=== PATIENT | male | born 1990 | race Hispanic/Latino ===

== ENCOUNTER 2024-05-23 11:02 | Emergency (ER) | payer BC ==
[~2024-05-23] VITALS: Ht 180.3 cm; Wt 102.1 kg
[2024-05-23] MEDS: PANTOPRAZOLE 40 MG/VIAL IVP ONE (11:31)
[2024-05-23] MEDS: ONDANSETRON 4MG INJ IVP ONE (11:31)
[2024-05-23] MEDS: 0.9%NACL 1000ML 1,000 ML IV ONE (11:31)
[2024-05-23 12:12] LABS: CREATININE 0.9 mg/dL (0.5-1.3); INR 1.1 (0.85-1.15); POTASSIUM 3.9 mmol/L (3.5-5.1); PROTHROMBIN TIME 11.8 SEC (9.6-11.6)
[2024-05-23 12:13] LABS: PARTIAL THROMBOPLASTIN TIME 26.5 SEC (26.3-35.5)
[2024-05-23 12:17] LABS: ALBUMIN 4.7 g/dL (3.5-5.0); BILIRUBIN,TOTAL 1.3 mg/dL (0.2-1.0); TOTAL PROTEIN, SERUM 9.3 g/dL (6.0-8.3)
[2024-05-23 12:21] LABS: APPEARANCE,URINE CLOUDY (CLEAR); BILIRUBIN,URINE 0.5 mg/dL (NEGATIVE); COLOR,URINE YELLOW (YELLOW); GLUCOSE, URINE (UA) NEGATIVE (NEGATIVE); KETONES,URINE 100 mg/dL (NEGATIVE); LEUKOCYTE ESTERASE ,URINE NEGATIVE Leu/uL (NEGATIVE); NITRATE,URINE NEGATIVE (NEGATIVE); OCCULT BLOOD,URINE SMALL (NEGATIVE); PROTEIN,URINE 300 mg/dL (NEGATIVE); UROBILINOGEN,URINE 3 mg/dL (0.2-1.0)
[2024-05-23 12:28] LABS: AMPHET/METH SCREEN,URINE NEGATIVE (NEGATIVE); BARBITURATE SCREEN, URINE NEGATIVE (NEGATIVE); BENZODIAZEPINES SCREEN,URINE NEGATIVE (NEGATIVE); CANNABINOID SCREEN,URINE POSITIVE (NEGATIVE); COCAINE SCREEN,URINE NEGATIVE (NEGATIVE); OPIATE SCREEN,URINE NEGATIVE (NEGATIVE); PHENCYCLIDINE SCREEN,URINE NEGATIVE (NEGATIVE)
[2024-05-23] MEDS ORDERED: MORPHINE 2 MG SYG IVP ONE (12:30)
[2024-05-23] MEDS ORDERED: ONDANSETRON 4MG INJ IVP ONE (12:30)
[2024-05-23 12:32] LABS: ADD UA MICROSCOPIC YES
[2024-05-23 12:34] LABS: BACTERIA,URINE FEW /HPF (None Seen); MUCUS,URINE MANY LPF (None Seen); SQUAMOUS EPITHELIAL CELL,UR RARE /HPF (0-2)
[2024-05-23] MEDS ORDERED: IOHEXOL-350 75 ML VIAL IV ONE (13:06)
[2024-05-23] MEDS: MORPHINE 2 MG SYG IVP ONE (15:14)
[2024-05-23] MEDS ORDERED: OMEP40CA21 PO (15:23)
[2024-05-23] MEDS ORDERED: CHLO25CA6 PO (15:23)
[2024-05-23] MEDS: LORazepam 2 MG/ML 1 ML VIAL IVP ONE (15:32)
[2024-05-23 15:58] VITALS: BP 150/98; PULSE 93; RESP 20; O2SAT 97
== END 2024-05-23 16:14 | disposition home or self-care (01) ==
LOC: EDH 11:02
DX: F10.129 Alcohol abuse with intoxication, unspecified (principal); K76.0 Fatty (change of) liver, not elsewhere classified; F12.10 Cannabis abuse, uncomplicated; R79.89 Other specified abnormal findings of blood chemistry; R04.2 Hemoptysis; Z90.89 Acquired absence of other organs; Y90.6 Blood alcohol level of 120-199 mg/100 ml
CPT/HCPCS: 99284; 74177; 96374; 96375; 71045; 80053; 80305; 83690; 85610; 85730; 36415; 81001; J2270; J2405; J2060; J2470; Q9967

== ENCOUNTER 2024-08-08 08:19 | Emergency (ER) | payer BC ==
[~2024-08-08] VITALS: Ht 180.3 cm; Wt 94.3 kg
[~2024-08-08 08:19] MED LIST: CHLO25CA6 PO; OMEP40CA21 PO
[2024-08-08 08:20] VITALS: TEMP 98.7
--- NOTE | 2024-08-08 08:26 | ERN ---
General Chief Complaint: Mechanical Fall Stated Complaint: FALL, ETOH ABUSE Time Seen by MD: 08:22 History of Present Illness Initial Comments 34-year-old male brought in by EMS from home for being found down. According to the patient, he drank very heavily over the last couple of days. According to family, they found him on the ground shaking earlier today. The patient does not remember the event. He is currently GCS 15, he does feel shaky. Tachycardic 120s per EMS. Otherwise vital signs stable. He reports he has w ithdrawn before in the past. He does not drink every day. Allergies: Coded Allergies: No Known Drug Allergies (Unverified Allergy, Unknown, 05/23/24) Home Meds Active Scripts Chlordiazepoxide HCl (Librium 25 mg Cap) 25 Mg Cap, 50 MG PO TID for 5 Days, #30 CAP TWO CAPSULES BY MOUTH EVERY 8 HOURS FOR THE NEXT FIVE DAYS. Prov:GEREMIAS MILTON NP 05/23/24 Omeprazole (Omeprazole) 40 Mg Capsule.dr, 40 MG PO DAILY, #30 CAP Prov:GEREMIAS MILTON NP 05/23/24 Past Medical History Past Medical History: Anxiety, Other Medical History Other: FATTY LIVER Past Surgical History: None Social History Social History: Drugs, ETOH ROS Dictation CONSTITUTIONAL: Shakiness and anxiety HEAD/FACE: No signs of trauma. EENT: No eye pain, no blurred vision, no tearing, no double vision, no ear pain, no ear discharge, no nose pain, no nasal congestion, no throat pain, no throat swelling, no mouth pain. RESPIRATORY: No cough, no orthopnea, no SOB, no stridor, no wheezing. CARDIOVASCULAR: No chest pain, no edema, no palpitations, no syncope. GASTROINTESTINAL/ABDOMINAL: No abdominal pain, no constipation, no diarrhea, no nausea, no vomiting. GENITOURINARY: No abnormal discharge, no dysuria, no frequent urination, no hematuria. No complaints of pain in the genitals. MUSCULOSKELETAL: No back pain, no gout, no joint pain, no joint swelling, no muscle pain, no muscle stiffness, no neck pain. INTEGUMENTARY: No change in color, no change in hair/nails, no dryness, no lesion, no lumps, no rash. NEUROLOGICAL/PSYCH: No anxiety, not depressed, no emotional problem, no headache, no numbness, no pre-existing deficit, no history of seizures, no tremors, no weakness. HEMATOLOGIC/LYMPHATIC: Not anemic, no history of blood clots, no apparent bleeding, no bruising, glands not swollen. All Systems Negative, Except as Noted. Physical Exam Physical Exam Dictation VITAL SIGNS: Reviewed. GENERAL APPEARANCE: Alert, oriented x3, shaky, obese. HEAD AND FACE: Non-traumatic. EYES: PERRL, pink conjunctivas, eyelid no trauma, anterior chamber clear. EARS: Pinnas intact and no signs of trauma or erythema. Ear canals clear and no discharge. TMs no erythema. NOSE: No discharge, no bleeding. OROPHARYNX: Mouth normal, teeth no caries, tongue pink. Pharynx clear, no erythema. Tonsils no exudates, no abscesses noted. Mucous membrane moist. NECK: Supple, non-tender, no thyromegaly, no masses, no JVD, no bruits. BREAST: Deferred. CHEST: No tenderness, no crepitus, no paradoxical movement, no retractions. LUNGS: Clear, well-ventilated, symmetric, no rales, no wheezing, no rhonchi, no stridor, good breath sounds bilaterally. HEART: Regular rate, regular rhythm, no murmur, no gallops. VASCULAR: No peripheral edema. ABDOMEN: Soft, positive bowel sounds, nondistended, no guarding, nontender, no rebound, no masses no hepatomegaly, no splenomegaly, no Almaraz's sign, no hernias. RECTAL: Deferred. GENITAL: Deferred. NEUROLOGICAL: Normal speech, gross motor function intact, gross sensory function intact. MUSCULOSKELETAL: Neck nontender, full range of motion, back nontender, full range of motion. EXTREMITIES: Nontender, full range of motion. SKIN: Color pink, dry, no turgor, no rash, no lacerations, no abrasions, no contusions. LYMPHATICS: Deferred. Results Laboratory and Microbiology Lab and Micro Result Laboratory Tests Test 08/08/24 09:51 White Blood Count 16.6 K/uL (4.8-10.8) H Red Blood Count 4.80 MIL/uL (4.50-6.20) Hemoglobin 14.9 g/dL (14.0-18.0) Hematocrit 43.9 % (42-54) Mean Corpuscular Volume 91.5 fL (79-99) Mean Corpuscular Hemoglobin 31.0 pg (27.0-33.0) Mean Corpuscular Hemoglobin Concent 33.9 g/dL (32.0-36.0) Red Cell Distribution Width 12.7 % (11.0-15.5) Platelet Count 344 K/uL (130-400) Mean Platelet Volume 9.5 fL (7.5-10.5) Immature Granulocyte % (Auto) 0.4 % (0-1) Neutrophils (%) (Auto) 85.2 % (40.0-77.0) H Lymphocytes (%) (Auto) 9.3 % (21.0-51.0) L Monocytes (%) (Auto) 4.1 % (3.0-13.0) Eosinophils (%) (Auto) 0.1 % (0.0-8.0) Basophils (%) (Auto) 0.9 % (0.0-5.0) Neutrophils # (Auto) 14.2 K/uL (1.8-7.7) H Lymphocytes # (Auto) 1.5 K/uL (1.0-4.8) Monocytes # (Auto) 0.7 K/uL (0.1-1.0) Eosinophils # (Auto) 0.02 K/uL (0.00-0.70) Basophils # (Auto) 0.15 K/uL (0.00-0.20) Absolute Immature Granulocyte (auto 0.07 K/uL (0-1) Nucleated Red Blood Cells 0.0 % (0.0-0.19) White Cell Morphology Comment See comments Sodium Level 135 mmol/L (136-145) L Potassium Level 3.8 mmol/L (3.5-5.1) Chloride Level 91 mmol/L (101-111) L Carbon Dioxide Level 17 mmol/L (21-32) L Blood Urea Nitrogen 17 mg/dL (7-18) Creatinine 1.3 mg/dL (0.5-1.3) Glomerular Filtration Rate Calc 73 mL/min (>90) Random Glucose 120 mg/dL (70-105) H Total Calcium 8.6 mg/dL (8.5-10.1) Total Bilirubin 1.3 mg/dL (0.2-1.0) H Direct Bilirubin 0.5 mg/dL (0.0-0.3) H Aspartate Amino Transf (AST/SGOT) 55 U/L (10-37) H Alanine Aminotransferase (ALT/SGPT) 70 U/L (12-78) Alkaline Phosphatase 160 U/L (50-136) H Ammonia 47 umol/L (11-32) H Total Creatine Kinase 614 U/L (21-232) *H Total Protein 8.8 g/dL (6.0-8.3) H Albumin 4.8 g/dL (3.5-5.0) Lipase 45 U/L (16-77) MDM CC: Altered mentation, recent alcohol use Historian: EMS and patient Comorbidities: Alcohol abuse Limitations by social determinants of health: None Vital signs: Tachycardia heart rate 125 otherwise unremarkable Labs show leukocytosis 16.6 1000 with a left shift. No bands. Chemistry does show mildly elevated CK, does not meet criteria for rhabdo. He is also mildly acidotic consistent with dehydration. Electrolytes are otherwise stable. CT of the brain without contrast shows no obvious bleed per my independent interpretation. Patient received 2 L normal saline and Reglan IV here in the ER. Symptoms are consistent with alcohol withdrawal. low suspicion for any life threats. He is not in delirium tremens at this time. Has a low CIWA score. We will DC. REASON: aloc ORDERING PHYSICIAN: DAVID ANNA DO PROCEDURE: HEAD WO - CT HEAD/BRAIN W/O CONTRAST CT HEAD/BRAIN W/O CONTRAST HISTORY: Loss of consciousness COMPARISON: None TECHNIQUE: Multiple sequential axial images of the head were obtained from the base of the skull through vertex. Patient was not given contrast through intravenous route. FINDINGS: The ventricles and extraventricular CSF spaces are nondilated for patient's age. There is no midline shift, mass effect or herniation. No acute intracranial bleed is seen. Visualized portion of the paranasal sinuses are grossly within normal limits. IMPRESSION: 1. No acute intracranial bleed is seen. ED Course Orders Procedure Category Date Status Time Cbc With Differential LAB 08/08/24 Complete 08:23 0.9%Nacl 1000ml (Ns PHA 08/08/24 Complete 1000ml) 08:30 Ketorolac PHA 08/08/24 Complete Tromethamine 15mg/Ml 08:30 Pantoprazole 40mg Inj PHA 08/08/24 Complete (Protonix 40mg Inj 08:30 Creatine Kinase, Total LAB 08/08/24 Complete 08:23 Lipase LAB 08/08/24 Complete 08:23 Basic Metabolic Panel LAB 08/08/24 Complete 08:23 Metoclopramide 10 PHA 08/08/24 Complete Mg/2 Ml Vial (Reglan 1 08:30 Ct Head/Brain W/O CT 08/08/24 Resulted Contrast 08:23 Hepatic Function Panel LAB 08/08/24 Complete 08:23 Ammonia LAB 08/08/24 Complete 08:23 0.9%Nacl 1000ml (Ns PHA 08/08/24 Complete 1000ml) 10:30 Current Medications Medications (Trade) Dose Ordered Sig/Brando Route PRN Reason Start Time Stop Time Status Last Admin Dose Admin Ketorolac Tromethamine (toRADol) 15 mg ONCE ONCE IV 08/08/24 08:30 08/08/24 08:31 DC 08/08/24 08:32 Metoclopramide HCl (regLAN 10MG IV) 10 mg ONCE ONCE IVP 08/08/24 08:30 08/08/24 08:31 DC 08/08/24 08:32 Pantoprazole Sodium (PROTonix 40MG INJ) 40 mg ONCE ONCE IVP 08/08/24 08:30 08/08/24 08:31 DC 08/08/24 08:32 Sodium Chloride 1,000 ml @ 0 mls/hr ONCE ONCE IV 08/08/24 08:30 08/08/24 08:31 DC 08/08/24 08:31 Sodium Chloride 1,000 ml @ 0 mls/hr ONCE ONCE IV 08/08/24 10:30 08/08/24 10:31 DC Vital Signs Date Time Temp Pulse Resp B/P (MAP) Pulse Ox O2 Delivery O2 Flow Rate FiO2 08/08/24 08:20 98.8 125 18 127/77 98 Room Air 0 DX & DISP Disposition: Discharge Departure Impression: Primary Impression: Alcohol withdrawal Additional Impressions: Alcohol abuse, Dehydration Condition: Stable Additional Instructions: Your symptoms are consistent with alcohol withdrawal and dehydration. Your lab work (CBC, BMP, CK) are unremarkable other than dehydration. You received 2 L of normal saline and Reglan here in the ER. Please follow up with her primary doctor. Referrals: SELF,REFERRAL (PCP) DAVID ANNA DO Aug 08, 2024 08:26
[2024-08-08] MEDS: 0.9%NACL 1000ML 1,000 ML IV ONE ×2 (08:31→11:20)
[2024-08-08] MEDS: PANTOPrazole 40 MG/VIAL IVP ONE (08:32)
[2024-08-08] MEDS: metoCLOPRAmide 10 MG/2 ML VIAL IVP ONE (08:32)
[2024-08-08] MEDS: ketOROlac 15MG/ML VIAL (15MG/ML) IV ONE (08:32)
--- NOTE | 2024-08-08 08:32 | NUR ---
PT WAS PLACED IN MY ED BED 12.
--- NOTE | 2024-08-08 08:44 | NUR ---
PT IS WALKING UP AND DOWN THE [place] W/ THE REASON THAT IT HELPS HIS ANXIETY. SECURITY HAS ALREADY SPOKEN TO THE PT.
--- NOTE | 2024-08-08 09:21 | NUR ---
PT WAS JUST BROUGHT BACK FROM CT VIA STRETCHER. PER FOOD AND NUTRITION PROFESSOR, PT WAS AWAKE AND SHAKING BUT ALERT. PT HAS HX OF ANXIETY AND HYPERVENTILATION
--- NOTE | 2024-08-08 09:22 | NUR ---
STRETCHER SR UP X 2, BED LOW AND LOCKED AND HOB SLIGHTLY ELEVATED LESS THAN FOWLERS POSITION
--- NOTE | 2024-08-08 09:29 | NUR ---
PT WAS HYPERVENTILATING AND FLAILING ABOUT.
--- NOTE | 2024-08-08 09:37 | HMCIMG ---
CT HEAD/BRAIN W/O CONTRAST HISTORY: Loss of consciousness COMPARISON: None TECHNIQUE: Multiple sequential axial images of the head were obtained from the base of the skull through vertex. Patient was not given contrast through intravenous route. FINDINGS: The ventricles and extraventricular CSF spaces are nondilated for patient's age. There is no midline shift, mass effect or herniation. No acute intracranial bleed is seen. Visualized portion of the paranasal sinuses are grossly within normal limits. IMPRESSION: 1. No acute intracranial bleed is seen. CT was performed with one or more following dose reduction techniques: automated exposure control, adjustment of the mA and kv according to patient's size, or use of a iterative reconstruction technique.
[2024-08-08 09:58] LABS: BASOPHILS # (AUTO) 0.15 K/uL (0.00-0.20); BASOPHILS % (AUTO) 0.9 % (0.0-5.0); EOSINOPHILS # (AUTO) 0.02 K/uL (0.00-0.70); EOSINOPHILS % (AUTO) 0.1 % (0.0-8.0); HEMATOCRIT 43.9 % (42-54); IMMATURE GRANULOCYTE ABSOLUTE 0.07 K/uL (0-1); LYMPHOCYTES # (AUTO) 1.5 K/uL (1.0-4.8); LYMPHOCYTES % (AUTO) 9.3 % (21.0-51.0); MEAN CORPUSCULAR HGB CONC 33.9 g/dL (32.0-36.0); MEAN CORPUSCULAR VOLUME 91.5 fL (79-99); MONOCYTES # (AUTO) 0.7 K/uL (0.1-1.0); MONOCYTES % (AUTO) 4.1 % (3.0-13.0); NEUTROPHILS # (AUTO) 14.2 K/uL (1.8-7.7); NEUTROPHILS % (AUTO) 85.2 % (40.0-77.0); PLATELET COUNT (AUTO) 344 K/uL (130-400); RED CELL DISTRIBUTION WIDTH 12.7 % (11.0-15.5); WHITE BLOOD COUNT (AUTO) 16.6 K/uL (4.8-10.8)
[2024-08-08 10:09] LABS: CREATININE 1.3 mg/dL (0.5-1.3); POTASSIUM 3.8 mmol/L (3.5-5.1)
[2024-08-08 10:22] LABS: ALBUMIN 4.8 g/dL (3.5-5.0); BILIRUBIN,DIRECT 0.5 mg/dL (0.0-0.3); BILIRUBIN,TOTAL 1.3 mg/dL (0.2-1.0); TOTAL PROTEIN, SERUM 8.8 g/dL (6.0-8.3)
[2024-08-08] MEDS ORDERED: DIAZ5TAB PO (11:23)
[2024-08-08 11:24] VITALS: BP 160/97; PULSE 90; RESP 18; O2SAT 98
== END 2024-08-08 11:36 | disposition home or self-care (01) ==
LOC: EDH 08:19
DX: F10.139 Alcohol abuse with withdrawal, unspecified (principal); E86.0 Dehydration; F41.9 Anxiety disorder, unspecified; Z79.899 Other long term (current) drug therapy; Y90.9 Presence of alcohol in blood, level not specified
CPT/HCPCS: 99284; 96374; 70450; 96375; 96361; 82550; 80076; 80048; 82140; 83690; 85025; 36415; J7030; J2470; J2765; J1885